=== PATIENT | male | born 1955 | race Caucasian/White ===

== ENCOUNTER → 2021-09-04 | Outpatient (CLI) | payer OTHER ==
[~2021-09-04] MED LIST: ASPIRIN 325MG325 MG PO; ASPIRIN CHEWABL81 MG PO; ASPIRIN EC81 MG PO; BRILINTA 90 MG90 MG PO; DAILY MULTIPLE1 EAC1 PO; IBUPROFEN800 MG PO; IMDUR ER TAB 3030 MG PO; ISOSORBIDE MONO30 MG PO; KEFLEX CAP 500500 MG PO; LIPITOR TAB 2020 MG PO; LISINOPRIL20 MG PO; LISINOPRIL40 MG PO; LOPRESSOR 25 MG25 MG PO; NITROSTAT 0.40.4 MG SL; NORCO 7.5-3251 EACH PO; PROTONIX 40 MG40 M1 PO; SYNTHROID125 MCG PO; SYNTHROID137 MCG PO; TERBINAFINE HC250 MG PO; VITAMIN C 500500 MG PO
== END ==
LOC: KOH-I 16:31
DX: M25.512 Pain in left shoulder (principal); M79.645 Pain in left finger(s); M54.6 Pain in thoracic spine; M47.814 Spondylosis without myelopathy or radiculopathy, thoracic region; M19.042 Primary osteoarthritis, left hand
CPT/HCPCS: 72070; 73030; 73130

== ENCOUNTER → 2021-11-10 | Outpatient (CLI) | payer OTHER | LOC: KOH-I 08:05 | DX: M25.512 Pain in left shoulder (principal); M75.102 Unspecified rotator cuff tear or rupture of left shoulder, not specified as traumatic; S43.432A Superior glenoid labrum lesion of left shoulder, initial encounter | CPT/HCPCS: 73221 ==

== ENCOUNTER → 2022-01-26 | Outpatient (CLI) | payer OTHER, BC ==
[2022-01-26 11:22] LABS: HEMOGLOBIN 15.6 gm/dl (14.0-17.5); RED BLOOD COUNT 4.79 M/UL (4.20-5.50); WHITE BLOOD COUNT 11.2 K/UL (4.5-11.0)
[2022-01-26 11:42] LABS: BUN/CREATININE RATIO 22 (0-10)
== END ==
LOC: OPSV2 10:00
PROVIDERS: Anesthesiology
DX: Z01.818 Encounter for other preprocedural examination (principal); M75.102 Unspecified rotator cuff tear or rupture of left shoulder, not specified as traumatic; J43.9 Emphysema, unspecified; R94.31 Abnormal electrocardiogram [ECG] [EKG]; I25.2 Old myocardial infarction
CPT/HCPCS: 71046; 80048; 85027; 93005